=== PATIENT | male | born 1985 | race Caucasian/White ===

== ENCOUNTER 2024-03-07 08:33 | Outpatient (CLI) | payer OTHER, SELFPAY ==
--- NOTE | ~2024-03-07 | XR_ITS ---
XR hand RT min 3V Ordering provider: Jose Mccabe MD History: . M79.641 - Pain in right hand - HX OF MULTIPLE FX TO . Comparison: None. FINDINGS: BONES: No acute fracture or dislocation. Dated fracture in the fifth metacarpal bone is noted. JOINT SPACES: Flexion deformity is seen in the fourth and fifth fingers. Clinical correlation advised . SOFT TISSUES: Normal. IMPRESSION: No acute osseous abnormality right hand. Old healed fracture in the fifth metacarpal bone. Shortening is possibly seen in the metacarpal bone. Flexion deformity seen in the fourth and fifth fingers. Reviewed, dictated and finalized at location A. ESS PLAN COORDINATOR IMPRESSION: No acute osseous abnormality right hand. Old healed fracture in the fifth metacarpal bone. Shortening is possibly seen i n the metacarpal bone. Flexion deformity seen in the fourth and fifth fingers.
--- OUTSIDE RECORDS SUMMARY | 2024-03-13 05:38 | XMS_ITS | Continuity of Care Document ---
Author Organization [facility] Address [address] [place] [address] Phone Care Team Providers Care Production Control Technologist Name Role Phone Pallavi Almonte NP Unavailable Unavailable Procedures Procedure Date EMERGENCY DEPT VISIT REPAIR SUPERFICIAL WOUND(S) EMERGENCY DEPT VISIT EMERGENCY DEPT VISIT Advance Directives Directive Yes / No Effective Date File Name No Information Encounters Encounter Description Practice Location Reason(s) For Visit Diagnoses Date Provider Providers Copied on Encounter EMERGENCY DEPT VISIT [facility], [address] [facility], [place], [place], [id number], [place] tel:[phone] [facility] No Information Gage Olivo. [address] [facility], [place], [place], [id number], [place]. tel:[phone] EMERGENCY DEPT VISIT [facility], [address], [place], [place], [id number], [place] tel:[phone] [facility] No Information Kit Taylor. [address], [place], [place], [id number], [place]. tel:[phone] EMERGENCY DEPT VISIT [facility], [address] [facility] [facility], [place], [place], [id number], [place] tel:[phone] [facility] No Information Sarahi Owusu. [address], [place], [place], [id number], [place]. tel:[phone] Family History Family Member Type Diagnosis Age At Onset No Information Payers Payer name Insurance type Covered constitution party ID timothy jonathanramakrishna(s) [employer] [id number] Social History Type Description Quantity Date Captured Comments Sex Male Smoking Status No Information Chief Complaint And Reason For Visit No Information Reason For Referral Reason For Referral No Information History Of Present Illness Encounter Date Complaint History Of Prese nt Illness No Information Functional Status Date Functional Assessmen t No Information Instructions Date Instruction Additional Infor mation No Information Assessments Type Assessment Date No Information Patient Care Teams Name Effective Dates (start - stop) Status Members No Information
== END 2024-03-07 08:34 | disposition home or self-care (01) ==
LOC: ANHIMG 08:36
PROVIDERS: Visit Provider Plastic Surgery
DX: M79.641 Pain in right hand (principal)
CPT/HCPCS: 73130